=== PATIENT | male | born 1990 | race Caucasian/White ===

== ENCOUNTER 2017-04-16 20:30 | Emergency (ER) | payer MEDICAID, SELFPAY ==
[2017-04-16 20:31] VITALS: BP 113/73; PULSE 95; RESP 15; TEMP 36.9; BMI 23.5
--- NOTE | 2017-04-16 21:22 | RAD_ITS ---
STUDY: X-RAY - RIGHT FOOT CLINICAL: Male, 26 years old. Pain TECHNIQUE: 3 view(s) of the foot. COMPARISON: None. FINDINGS: There is fixation at the first metatarsal osteotomy and first proximal phalanx. There is no acute fracture. No osseous destruction. The joint spaces are well-maintained. Normal talus, calcaneus, and tarsal bones. Normal visualized subtalar, talonavicular, calcaneocuboid, tarsal and tarsometatarsal articulations. Normal metatarsophalangeal joint of the great toe. Normal tibial and fibular sesamoid bones. Normal interphalangeal joint of the great toe. Normal second through fifth metatarsophalangeal joints. Normal interphalangeal joints and phalanges of the lesser toes. The soft tissue structures are unremarkable. RAD/Foot min 3 Views IMPRESSION: Status post forefoot reconstruction Electronically Signed: Kiran Handley MD at 21:40 EST Tel , Service support ,
--- NOTE | 2017-04-16 22:17 | ED.DCSUM_ITS ---
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 Had surgery on his right foot by Dr. Waters at the [facility] in October 2015. Reports that tonight he went rollerskating and his skate got caught on a piece of plastic. States that he has pain in his right first metatarsal and toe that is 10 out of 10 with walking and 9 out of 10 at rest. Describes the pain as sharp. Is taken ibuprofen without relief. Physical Examination: Vitals: Stable. Afebrile. General: Well-nourished and well-developed. Head: Normocephalic atraumatic. Neck: Supple, no lymphadenopathy. No JVD. Nontender. Cardiovascular: Regular rate and rhythm. No murmurs. Respiratory: No respiratory distress. Clear to auscultation bilaterally. Abdominal: Soft, nontender, nondistended, normal bowel sounds. No guarding, rebound, or peritoneal signs. Back: Nontender. Extremities: Moderate tenderness palpation over the first metatarsal and first proximal phalanx. There is no soft tissue swelling or contusion. He is a 2+ dorsalis pedis pulse.. Skin: Normal color, no rash. Neurologic: Alert and oriented ?3. Cranial nerves II through XII are intact. Normal strength and sensation. Psych: Normal affect. Test Results: X-ray shows the hardware to be intact and no acute disease. Emergency Department Course and Treatment: An [facility] report was obtained which shows patient had 4 prescriptions for opiates in the past year. He is treated with [place] here. Treatment Plan: Patient will be discharged prescription for [place]. He reports that he has crutches, postop shoe, and a walking boot at home. He is instructed to follow-up Dr. Waters in 1 week if not improving. Disposition: To home in improved and stable condition. Impression: 1. Right foot pain, acute. This note was generated with [employer] dictation software. It may contain incorrect words, spelling, and punctuation that were not noted in review of the chart prior to signing ED Disposition - Plan for ED Patient: Disposition: Home or Assisted Living Chief Complaint: Lower Extremity Injury Instructions: ED Contusion Foot Prescriptions: Hydrocodone Bitart/Apap 5-325 [[place] 5/325] 1 - 2 tablet PO Q4H PRN PRN 5 Days # 20 tablet PRN Reason: Pain Additional Instructions: Follow up with Dr. Baez in 1 week if not improving.
[2017-04-16] MEDS: HYDROcodone Bitartrate/Apap 5/325 Tablet PO ×2 (22:32→22:33)
[2017-04-16 22:35] VITALS: BP 134/83; PULSE 84; RESP 17; O2SAT 99
--- NOTE | 2017-04-16 22:35 | ED.RN ---
PT GIVEN WRITTEN AND VERBAL D/C INSTRUCTIONS. PT VERBALIZES UNDERSTANDING. PT EDUCATED ON HOME PACK OR [place], TOLD NOT TO DRIVE WHEN TAKING. PT VERBALIZES UNDERSTANDING. I HAVE TAKEN IT BEFORE. PT AMBULATORY HOME WITH FRIEND.
== END 2017-04-16 22:36 | disposition home or self-care (01) ==
PROVIDERS: Emergency Provider Emergency Medicine
DX: M79.671 Pain in right foot (principal); Z72.0 Tobacco use; Z79.899 Other long term (current) drug therapy
CPT/HCPCS: 73630; 99283